=== PATIENT | male | born 1975 | race Hispanic/Latino ===

== ENCOUNTER 2017-05-18 12:10 | Emergency (ER) | payer MEDICAID ==
[2017-05-18 12:10] VITALS: BMI 25.8
[2017-05-18 12:45] VITALS: O2SAT 98
--- NOTE | 2017-05-18 13:24 | ED PDOC ---
Arrival/HPI - General Historian: Patient - History of Present Illness Time/Duration: Other ( 2 weeks) Symptom Onset: Sudden Activities at Onset: Rest, Light Context: Home <Ada Omalley - Last Filed: 05/18/17 18:26> <Geo Hoang - Last Filed: 05/18/17 22:14> - General Chief Complaint: Flu-like Symptoms Time Seen by Provider: 05/18/17 12:55 - History of Present Illness Narrative History of Present Illness (Text): 05/18/17 13:18 A 41 year old male, with no significant past medical history, presents to the emergency department complaining of cold and cough symptoms. He states that he was feeling congested with associated sore throat and cough on 05/03 for a week which resolved on its own, but his symptoms returned yesterday. The patient denies fevers, chills, dizziness, chest pain, shortness of breath, dyspnea on exertion, abdominal pain, nausea, vomiting, diarrhea, neck pain, urinary/bowel changes, or any other complaint. (Ada Omalley) Past Medical History - Provider Review Nursing Documentation Reviewed: Yes - Infectious Disease Hx of Infectious Diseases: None - Psychiatric Hx Substance Use: No - Anesthesia Hx Anesthesia: No <Ada Omalley - Last Filed: 05/18/17 18:26> Family/Social History - Physician Review Nursing Documentation Reviewed: Yes Family/Social History: No Known Family HX Smoking Status: Heavy Smoker > 10 Cigarettes Daily Hx Alcohol Use: Yes Hx Substance Use: No <Ada Omalley - Last Filed: 05/18/17 18:26> Allergies/Home Meds <Ada Omalley - Last Filed: 05/18/17 18:26> <Geo Hoang - Last Filed: 05/18/17 22:14> Allergies/Adverse Reactions: Allergies No Known Allergies Allergy (Verified 05/18/17 12:44) Review of Systems - Physician Review All systems were reviewed & negative as marked: Yes - Review of Systems Constitutional: absent: Fevers ENT: Sore Throat, Sinus Congestion Respiratory: Cough Cardiovascular: absent: Chest Pain Gastrointestinal: absent: Abdominal Pain, Stool Changes, Diarrhea, Vomiting Genitourinary Male: absent: Urinary Output Changes Musculoskeletal: absent: Neck Pain Neurological: absent: Dizziness <Ada Omalley - Last Filed: 05/18/17 18:26> Physical Exam Vital Signs Reviewed: Yes Temperature: Afebrile Blood Pressure: Normal Pulse: Regular Respiratory Rate: Normal Appearance: Positive for: Well-Appearing, Non-Toxic, Comfortable Pain Distress: None Mental Status: Positive for: Alert and Oriented X 3 - Systems Exam Head: Present: Atraumatic Extroacular Muscles: Present: EOMI Conjunctiva: Present: Normal Ears: Present: Normal, NORMAL TM Mouth: Present: Moist Mucous Membranes Pharnyx: Present: Normal. No: ERYTHEMA, EXUDATE, TONSILS ENLARGED, Peritonsilar Swelling, Uvular Deviation, Muffled/Hoarse Voice Nose (Internal): Present: Normal Inspection Neck: Present: Normal Range of Motion Respiratory/Chest: Present: Clear to Auscultation, Good Air Exchange. No: Respiratory Distress, Accessory Muscle Use Cardiovascular: Present: Regular Rate and Rhythm, Normal S1, S2. No: Murmurs Abdomen: No: Tenderness, Rebound, Guarding Back: Present: Normal Inspection. No: CVA Tenderness Neurological: Present: GCS=15, Speech Normal Skin: Present: Warm, Dry, Normal Color. No: Rashes Psychiatric: Present: Alert, Oriented x 3 <Ada Omalley - Last Filed: 05/18/17 18:26> Vital Signs Temp Pulse Resp BP Pulse Ox 05/18/17 15:24 97.9 F 63 18 120/90 98 05/18/17 12:42 98.6 F 77 16 148/87 98 Medical Decision Making <Ada Omalley - Last Filed: 05/18/17 18:26> <Geo Hoang - Last Filed: 05/18/17 22:14> ED Course and Treatment: 05/18/17 13:24 Impression: A 41 year old male presents to the emergency department complaining of sore throat, cough, and congestion since yesterday. Plan: -- Chest X-ray ? rll infiltrate -- Rapid Flu A/B: negative -- Reassess and disposition Progress Notes: Patient is nontoxic well-appearing in no distress. Vital signs are stable. Zithromax I advised follow up with primary care physician within the next 2 days. Stressed importance of immediate follow-up with the primary care physician regarding pneumonia on chest x-ray. I advised increase fluids and return if symptoms worsen persist or if new symptoms develop. Patient verbalizes understanding of discharge instructions and need for immediate followup. all aspects of this case were discussed the attending of record. IMPRESSION; pneumonia Motrin one tablet every 6 hours as needed for pain Zithromax one tablet once daily x4 days Increase fluids Followup with primary care physician the next 2 days Return if symptoms worsen persist or if new symptoms develop (Ada Omalley) - Lab Interpretations Lab Results: Lab Results 05/18/17 13:20: Influenza Typ A,B (EIA) Negative for flu a/b - RAD Interpretation Radiology Orders: 05/18/17 13:17 CHEST TWO VIEWS (PA/LAT) [RAD] Stat - Medication Orders Current Medication Orders: Discontinued Medications Azithromycin (Zithromax) 500 mg PO STAT STA PRN Reason: Protocol Stop: 05/18/17 14:46 Last Admin: 05/18/17 15:10 Dose: 500 mg - Scribe Statement The provider has reviewed the documentation as recorded by the Scribe <Ada Omalley - Last Filed: 05/18/17 18:26> - PA / FINANCE VICE PRESIDENT / Resident Statement / has reviewed & agrees with the documentation as recorded. <Geo Hoang - Last Filed: 05/18/17 22:14> - Scribe Statement Cely Gibson Provider Scribe Attestation: All medical record entries made by the Scribe were at my direction and personally dictated by me. I have reviewed the chart and agree that the record accurately reflects my personal performance of the history, physical exam, medical decision making, and the department course for this patient. I have also personally directed, reviewed, and agree with the discharge instructions and disposition. (Ada Omalley) Disposition/Present on Arrival - Present on Arrival Any Indicators Present on Arrival: No History of DVT/PE: No History of Uncontrolled Diabetes: No Urinary Catheter: No History of Decub. Ulcer: No History Surgical Site Infection Following: None - Disposition Have Diagnosis and Disposition been Completed?: Yes Disposition Time: 14:45 Patient Plan: Discharge <Ada Omalley - Last Filed: 05/18/17 18:26> <Geo Hoang - Last Filed: 05/18/17 22:14> - Disposition Diagnosis: Pneumonia Disposition: HOME/ ROUTINE Condition: GOOD Discharge Instructions (ExitCare): Pneumonia (ED) Additional Instructions: Motrin one tablet every 6 hours as needed for pain Zithromax one tablet once daily x4 days Increase fluids Followup with primary care physician the next 2 days Return if symptoms worsen persist or if new symptoms develop Prescriptions: Azithromycin [Zithromax] 250 mg PO DAILY #4 tab Ibuprofen [Motrin] 600 mg PO Q6H PRN #20 tab PRN Reason: pain/fever reduction Referrals: Miki Brennan MD [Primary Care Provider] - Follow up with primary Forms: [facility] (Amharic), WORK NOTE
[2017-05-18 15:25] VITALS: BP 120/90; PULSE 63; RESP 18; TEMP 97.9
--- NOTE | 2017-05-18 15:25 | RAD ---
HISTORY: cough COMPARISON: No prior. TECHNIQUE: Chest PA and lateral FINDINGS: LUNGS: No active pulmonary disease. PLEURA: No significant pleural effusion identified. No pneumothorax apparent. CARDIOVASCULAR: Normal. OSSEOUS STRUCTURES: No significant abnormalities. VISUALIZED UPPER ABDOMEN: Normal. OTHER FINDINGS: None. IMPRESSION: No active disease.
== END 2017-05-18 15:27 | disposition home or self-care (01) ==
LOC: ED 12:10
DX: J18.9 Pneumonia, unspecified organism (principal); F17.210 Nicotine dependence, cigarettes, uncomplicated